=== PATIENT | male | born 1960 | race Two or more races ===

== ENCOUNTER → 2024-06-25 | Outpatient (CLI) | payer MEDICARE, MEDICAID, SELFPAY ==
--- NOTE | 2024-06-25 12:30 | XR_ITS ---
Examination: MRI lumbar spine without contrast Date and time of exam: June 25, 2024 1237 hours INDICATIONS: Lifting injury to the back 2015 with persistent back pain radiating down the right leg Technique: Multiple MRI axial and sagittal sections lumbar spine. Sagittal T2-weighted images, TR 3500, TE 118 T1 weighted transverse sections, TR 688 T8.5, T2-weighted sagittal sections T1 weighted sagittal sections TR 621, TE 30 T2 axial sections, TR 4, 190, TE 84. Findings: Adequate alignment lumbar vertebral bodies No lumbar fracture Mild disc narrowing L4-L5 moderate disc narrowing L5-S1 No spondylolisthesis L5-S1 2 mm right paracentral disc bulge displacing the right S1 nerve root L4-L5 2 mm central lumbar disc bulge L3-L4 no disc protrusion L2-L3 no disc protrusion L1-L2 no disc protrusion IMPRESSION: L5-S1 2 mm right paracentral disc bulge displacing the right S1 nerve root L4-L5 2 mm central lumbar disc bulge
== END | disposition home or self-care (01) ==
PROVIDERS: PCP Family Medicine; Referring Provider Physician Assistant; Visit Provider Physician Assistant
DX: M51.369 Other intervertebral disc degeneration, lumbar region without mention of lumbar back pain or lower extremity pain (principal); M51.379 Other intervertebral disc degeneration, lumbosacral region without mention of lumbar back pain or lower extremity pain
CPT/HCPCS: 72148

== ENCOUNTER 2025-04-05 09:08 | Emergency (ER) | payer MEDICARE, MEDICAID, SELFPAY ==
[2025-04-05 11:02] VITALS: BP 126/81; PULSE 69; RESP 18; TEMP 36.7; O2SAT 97; BMI 20.5
--- NOTE | 2025-04-05 11:13 | PD.EDRME ---
Rapid Medical Screening Exam RME Arrival date/time: 04/05/25 09:08 Chief Complaint: Ankle/Foot Injury Time Seen by Provider: 04/05/25 10:47 Vital signs: Vital Signs Temperature 98.0 F 04/05/25 11:02 Pulse Rate 69 04/05/25 11:02 Respiratory Rate 18 04/05/25 11:02 Blood Pressure 126/81 04/05/25 11:02 Pulse Oximetry (%) 97 04/05/25 11:02 Oxygen Delivery Method Room Air 04/05/25 11:02 RME Narrative: 64-year-old male with past medical history of diabetes presents to the ER complaining of right second toe pain for the past few months along with a wound which is now becoming more painful. I briefly performed a screening evaluation to initiate work-up and expedite care. Complete history, physical exam, and plan of care is deferred to the provider in the main ED. Exam: Head: Normocephalic, atraumatic. Respiratory: Normal effort. No respiratory distress or accessory muscle use. Neuro: Speech normal. Skin: Warm, dry, normal color. Psych: Pleasant. Normal affect. Cooperative. Clinical Impression: Concern for diabetic foot ulcer
--- NOTE | 2025-04-05 11:16 | XR_ITS ---
Examination: Foot, left, 3 views Technique: AP, oblique, lateral views foot, 3 views Date and time of exam: April 05, 2025, 1112 hours INDICATIONS: Palpable mass second digit 2 months causing pain FINDINGS: Soft tissue mass second digit on the first digit side, 15 mm Prominent bunion deformity with advanced osteoarthritis first metatarsophalangeal joint No fracture No cortical erosion IMPRESSION: 15 mm soft tissue mass second digit Consider MRI for without contrast follow-up
[2025-04-05 11:58] LABS: Lactate (Lactic Acid) 1.1 mMol/L (0.4-2.0)
[2025-04-05 12:05] LABS: Basophils # (Auto) 0.1 Thou/mm3 (0.0-0.2); Basophils % (Auto) 1 % (0-2.5); Eosinophils # (Auto) 0.5 Thou/mm3 (0.0-0.5); Eosinophils % (Auto) 7 % (0-10); Hematocrit 46.5 % (41.0-53.0); Hemoglobin 15.4 g/dL (13.5-16.0); Immature Granulocytes Auto 0.02 Thou/mm3 (0.00-0.00); Lymphocytes # (Auto) 0.9 Thou/mm3 (1.0-4.8); Lymphocytes % (Auto) 15 % (10-50); Mean Corpuscular HGB Conc 33.1 g/dl (31.0-37.0); Mean Corpuscular Hemoglobin 30.3 pg (25.0-35.0); Mean Corpuscular Volume 91 fL (80-100); Monocytes # (Auto) 0.6 Thou/mm3 (0.0-0.8); Monocytes % (Auto) 9 % (0-12); Neutrophils # (Auto) 4.3 Thou/mm3 (1.8-7.7); Neutrophils % (Auto) 68 % (37-80); Nucleated Red Blood Cell # 0.00 Thou/mm3 (0.00-0.00); Nucleated Red Blood Cell % 0 /100 WBC (0); Platelet Count 164 Thou/mm3 (140-440); RDW Standard Deviation 42.5 fL (35.1-43.9); Red Blood Count 5.09 Miln/mm3 (4.50-5.90); White Blood Count 6.4 Thou/mm3 (3.8-10.6)
[2025-04-05 12:26] LABS: Anion Gap 8 (7-16); BUN/Creatinine Ratio 15 Ratio (12-20); Blood Urea Nitrogen 15 mg/dL (9-23); C-Reactive Protein < 0.5 mg/dL (0.0-0.9); Calcium 9.6 mg/dL (8.3-10.6); Carbon Dioxide 28.9 mMol/L (20.0-31.0); Chloride 107 mMol/L (98-107); Creatinine (Component) 1.0 mg/dL (0.6-1.3); Estimated Creatinine Clearance 60.4 mL/min (>60); Glucose 176 mg/dL (74-106); Osmolality,Calculated 291 (275-295); Potassium 5.1 mMol/L (3.4-5.1); Sodium 144 mMol/L (136-145); eGFR > 60 See Note
[2025-04-05 12:35] LABS: Sed Rate (ESR) 14 mm/hr (0-20)
--- NOTE | 2025-04-05 16:17 | PC.NURSE ---
CALLED FOR PT FROM [facility]/OUTSIDE, NO ANSWERX1@ [phone]
--- NOTE | 2025-04-05 16:39 | PC.LAC ---
called outside and lobby na [phone]
--- NOTE | 2025-04-05 16:53 | PC.NURSE ---
CALLED [facility]OB[facility] AND OUTSIDE NO ANSWER AT [phone]
== END 2025-04-05 16:54 | disposition left against medical advice (07) ==
PROVIDERS: Physician Assistant; Emergency Provider Family Medicine
DX: M79.674 Pain in right toe(s) (principal); Z53.29 Procedure and treatment not carried out because of patient's decision for other reasons
CPT/HCPCS: 36415; 73630; 80048; 83605; 85025; 85652; 86140; 87040; 99283